=== PATIENT | male | born 1990 | race Caucasian/White ===

== ENCOUNTER 2025-07-02 07:41 | Emergency (ER) | payer BC, SELFPAY ==
[2025-07-02 07:46] VITALS: BP 142/101; PULSE 95; TEMP 36.6; O2SAT 98; BMI 29.5
[2025-07-02 07:51] VITALS: PULSE 88
--- NOTE | 2025-07-02 07:56 | XR_ITS ---
The [address] [address] Patient Name: VASILIY TRAVIS MRN: [id number] date: 1990 Sex: M Assigned Patient Location: ER Current Patient Location: ER Accession/Order Number: [id number] Exam Date: 07/02/2025 08:16 Report Date: 07/02/2025 08:58 At the request of: LISA GUSTAFSON MD Procedure: XR chest 1V PORTABLE AP ERECT CHEST 0816 hours CLINICAL HISTORY: Chest pain and shortness of breath COMPARISON: None The heart is within normal limits. A right pericardial fat pad is seen. There is no vascular congestion. There may be minimal atelectasis or scarring at the left base. No other consolidation is noted. There is no sizable effusion or pneumothorax. There is shortening of the distal left clavicle which may relate to previous trauma or surgery. Correlation is suggested. XR/XR chest 1V IMPRESSION: NO ACUTE FINDINGS Impression dictated by: Ruth Garcia M.D. 07/02/2025 8:58 AM Dictation Location: [employer] Electronically authenticated by: [id number] Y Date: 07/02/2025 08:58
--- NOTE | 2025-07-02 07:56 | ECG_ITS ---
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
--- NOTE | 2025-07-02 07:56 | ED.GENADUL1 ---
HPI HPI - General Adult General Chief complaint: Chest Pain Stated complaint: CHEST PAINS SOB Time Seen by Provider: 07/02/25 07:50 Source: patient Mode of arrival: walk-in Limitations: no limitations History of Present Illness HPI narrative: 35-year-old male presents to the emergency department for chest pain. It started 1-1/2 hours ago as he was driving his vehicle home from work. It felt like a tightness and it is much better now, nearly completely gone. He is not short of breath. There is no injury and he has never had symptoms like this before. No fever or cough or abdominal pain. Related Data Home Medications ?Medication ?Instructions ?Recorded ?Confirmed No Known Home Medications 07/02/25 07/02/25 Allergies Allergy/AdvReac Type Severity Reaction Status Date / Time amoxicillin AdvReac Mild Hives Verified 07/02/25 07:45 Review of Systems ROS Narrative A ten point review of systems is negative except as noted above. PFSH PFSH Social History Little interest or pleasure in doing things: not at all Feeling down, depressed, or hopeless: not at all Exam Narrative Exam Narrative: Nurses note and vital signs reviewed and patient is not hypoxic. General: The patient appears well and in no apparent distress. Patient is resting comfortably on cart. Skin: Warm, dry, no pallor noted. There is no rash noted. Head: Normocephalic, atraumatic Eye: Normal conjunctiva, no drainage Ears, Nose, Mouth, and Throat: oral mucosa is moist. Nares patent. Cardiovascular: Regular Rate and Rhythm; chest wall nontender Respiratory: Patient is in no distress, no accessory muscle use, lungs are clear to auscultation, no wheezing, rales or rhonchi Back: non-tender, no CVA tenderness bilaterally to percussion. GI: Soft and nontender Musculoskeletal: The patient has no evidence of calf tenderness, no pitting edema, symmetrical pulses noted bilaterally Neurological: A&O, normal speech Psychiatric: Cooperative Constitutional Vital Signs, click to edit/add: Last Vital Signs Temp 97.8 F 07/02/25 07:46 Pulse 95 H 07/02/25 07:46 Resp 18 07/02/25 07:46 BP 142/101 H 07/02/25 07:46 Pulse Ox 98 07/02/25 07:46 O2 Del Method Room Air 07/02/25 07:46 Course Vital Signs Vital signs: Vital Signs Temperature 97.8 F 07/02/25 07:46 Pulse Rate 95 H 07/02/25 07:46 Respiratory Rate 18 07/02/25 07:46 Blood Pressure 142/101 H 07/02/25 07:46 Pulse Oximetry 98 07/02/25 07:46 Oxygen Delivery Method Room Air 07/02/25 07:46 Temperature 97.8 F 07/02/25 07:46 Pulse Rate 95 H 07/02/25 07:46 Respiratory Rate 18 07/02/25 07:46 Blood Pressure 142/101 H 07/02/25 07:46 Pulse Oximetry 98 07/02/25 07:46 Oxygen Delivery Method Room Air 07/02/25 07:46 Medical Decision Making MDM Narrative Medical decision making narrative: His workup is negative including 2 sets of troponin. He states he has been under a lot of stress recently and this certainly could be the cause of his symptoms. Treatment diagnosis and follow-up were discussed with the patient. Differential Diagnosis Differential Diagnosis: MA, atypical chest pain, chest pain, pneumothorax, anxiety Lab Data Lab results reviewed: Yes I reviewed the patient's lab results Labs: Lab Results 07/02/25 07/02/25 Range/Units 08:03 08:43 WBC 7.8 (4.0-11.0) 10^3/uL RBC 5.48 (4.70-6.10) 10^6/uL Hgb 16.3 (14.0-18.0) g/dL Hct 46.9 (42.0-54.0) % MCV 85.6 (80.0-94.0) fL MCH 29.7 (25.9-34.0) pg MCHC 34.8 (29.9-35.2) g/dL RDW 12.8 (11.0-15.0) % Plt Count 298 (150-450) 10^3/uL MPV 9.0 L (9.5-13.5) fL Neut % (Auto) 63.2 (43.0-75.0) % Lymph % (Auto) 28.3 (20.5-60.0) % Rabun % (Auto) 6.8 (1.7-12.0) % Eos % (Auto) 0.9 (0.9-7.0) % Baso % (Auto) 0.5 (0.2-2.0) % Neut # (Auto) 5.0 (1.4-6.5) 10^3/uL Lymph # (Auto) 2.2 (1.2-3.8) 10^3/uL Rabun # (Auto) 0.5 (0.3-0.8) 10^3/uL Eos # (Auto) 0.1 (0.0-0.7) 10^3/uL Baso # (Auto) 0.0 (0.0-0.1) 10^3/uL Abs Immat Gran (auto) 0.02 (0.00-0.03) 10^3/uL Imm/Tot Granulo (auto) 0.3 (0.0-0.5) % Sodium 139 (136-145) mmol/L Potassium 3.4 L (3.5-5.1) mmol/L Chloride 102 (98-107) mmol/L Carbon Dioxide 26.0 (21.0-32.0) mmol/L Anion Gap 14.4 BUN 17.0 (7.0-18.0) mg/dL Creatinine 0.92 (0.70-1.30) mg/dL Est GFR ( Amer) >60 (>=60 mL/min/1.73m^2) Est GFR (Non-Af Amer) >60 (>=60 mL/min/1.73m^2) BUN/Creatinine Ratio 18.5 Glucose 103 (74-106) mg/dL Calcium 9.3 (8.5-10.1) mg/dL Troponin I High Sens <4.0 L <4.0 L (4.0-76.1) pg/mL Imaging Data Chest x-ray: Radiologist's impression: ITS Impressions Chest X-Ray 07/02/25 07:56 IMPRESSION: NO ACUTE FINDINGS Impression dictated by: Ruth Garcia M.D. 07/02/2025 8:58 AM Dictation Location: [place] [address] Electronically authenticated by: [id number] Y Date: 07/02/2025 08:58 ECG Data Attestation: I personally reviewed and interpreted this ECG as follows: (EKG on my interpretation shows normal sinus rhythm with no acute change. ) Discharge Plan Discharge Chief Complaint: Chest Pain Clinical Impression: Chest pain Patient Disposition: Home, Self-Care Time of Disposition Decision: 09:10 Condition: Good Mode of Transportation: Private Vehicle Prescriptions / Home Meds: No Action No Known Home Medications Print Language: Kyrgyz Instructions: Chest Pain (ED) Referrals: Physician,Non-Staff, MD [Primary Care Provider] - 1 week
[2025-07-02 08:16] LABS: Hematocrit 46.9 % (42.0-54.0); Hemoglobin 16.3 g/dL (14.0-18.0); Immature Granulocytes Abs Auto 0.02 10^3/uL (0.00-0.03); Immature Granulocytes Pct Auto 0.3 % (0.0-0.5); Lymphocytes Absolute Auto 2.2 10^3/uL (1.2-3.8); Mean Corpuscular HGB Conc 34.8 g/dL (29.9-35.2); Mean Corpuscular Hemoglobin 29.7 pg (25.9-34.0); Mean Corpuscular Volume 85.6 fL (80.0-94.0); Platelet Count 298 10^3/uL (150-450); Red Blood Count 5.48 10^6/uL (4.70-6.10); White Blood Count 7.8 10^3/uL (4.0-11.0)
[2025-07-02 08:32] LABS: Anion Gap 14.4; Blood Urea Nitrogen 17.0 mg/dL (7.0-18.0); Calcium 9.3 mg/dL (8.5-10.1); Carbon Dioxide 26.0 mmol/L (21.0-32.0); Chloride 102 mmol/L (98-107); Estimated GFR (African America >60 (>=60 mL/min/1.73m^2); Estimated GFR (Non-African Ame >60 (>=60 mL/min/1.73m^2); Glucose 103 mg/dL (74-106); Potassium 3.4 mmol/L (3.5-5.1); Sodium 139 mmol/L (136-145)
== END 2025-07-02 09:30 | disposition home or self-care (01) ==
PROVIDERS: Emergency Provider Emergency Medicine
DX: R07.9 Chest pain, unspecified (principal)
CPT/HCPCS: 36415; 71045; 80048; 84484; 85025; 93005; 99285